=== PATIENT | male | born 1950 | race African-American/Black ===

== ENCOUNTER → 2016-10-29 | Outpatient (CLI) | payer MEDICARE, OTHER ==
[~2016-10-29] MED LIST: AMLO2.5T PO; IOHEXOL 300 MG/ML 100ML VIAL. IV ONE; LOSA25TA4 PO; METF500T4 PO; TAMS0.4C97 PO
--- NOTE | 2016-10-29 11:19 | KCIC ---
Examination: CT chest with IV contrast HISTORY History of enlarged paraesophageal lymph node followup COMPARISON 02/12/2016. TECHNIQUE Axial CT images of the chest were performed with IV contrast. Coronal sagittal reformats were performed. Findings : Enlarged appearing thyroid gland grossly similar to prior exam with nodules identified in the left lobe of the thyroid gland and the isthmus with the largest measuring 1.3 centimeters. The caliber of the aorta grossly appears unremarkable. The central airways are patent. The heart size is normal. No evidence of pericardial effusion identified. Small left paraesophageal lymph nodes with the largest measuring 1.5 centimeters are again identified. There is a 1.1 centimeter lymph node identified in the mediastinum in the AP window region. The lungs are clear. No evidence of pleural effusion or pneumothorax. There is diffuse decrease attenuation noted throughout the liver likely hepatic steatosis. There is a small hypodensity identified in the right lobe of the liver measuring 4 millimeters is too small to characterize. The visualized spleen, adrenals grossly appears unremarkable. The stomach is mildly distended. Small hiatal hernia identified. The visualized pancreas grossly appears unremarkable.Mild degenerative changes thoracic spine. IMPRESSION - Unchanged small left paraesophageal lymph nodes grossly similar to prior exam. - Hepatic steatosis. - Multinodular goiter with the largest lymph node measuring 1.3 centimeters in this thymus. Followup ultrasound thyroid can be considered. Electronically signed by: Demetrio Berman (Oct 29, 2016 11:09:03)
== END | disposition home or self-care (01) ==
LOC: KCIC CT 09:33
PROVIDERS: ATTEND Family Medicine
DX: K76.0 Fatty (change of) liver, not elsewhere classified (principal); E04.2 Nontoxic multinodular goiter; R59.9 Enlarged lymph nodes, unspecified
CPT/HCPCS: 71260; 82565; Q9967

== ENCOUNTER → 2017-02-14 | Outpatient (CLI) | payer MEDICARE ==
[~2017-02-14] MED LIST changes: -IOHEXOL 300 MG/ML 100ML VIAL. IV ONE
--- NOTE | 2017-02-14 13:18 | KCIC ---
BILATERAL DUPLEX CAROTID SONOGRAPHY History: Hemispheric carotid artery syndrome. Weakness and numbness, dizziness, speech difficulty. Technique: Duplex sonography of the cervical portion of both carotid arteries was performed. Real-time grayscale, color flow Doppler, and Doppler spectral waveform analysis is performed. Findings: Right side: Peak systolic flow velocity of the CCA is 101 cm/sec. Peak systolic flow velocity of the ICA is 66 cm/sec. The ICA/CCA ratio is 0.6. Peak end diastolic flow velocity of the ICA is 17 cm/sec. The peak systolic velocity of the ECA is 65 cm/sec. No significant plaque formation is identified. Left side: Peak systolic flow velocity of the CCA is 87 cm/sec. Peak systolic flow velocity of the ICA is 81 cm/sec. The ICA/CCA ratio is 0.9. Peak end diastolic flow velocity of the ICA is 26 cm/sec. Peak systolic flow velocity of the ECA is 61 cm/sec. No significant plaque formation is identified. Vertebral arteries: Bilateral vertebral arteries demonstrate antegrade flow. IMPRESSION: No hemodynamically significant internal carotid artery stenosis is identified. PQRS Compliance Statement - Stenosis calculations for CT, MR and conventional angiography are based upon measurement of the distal ICA diameter in accordance with the NASCET methodology. Stenosis calculations for carotid ultrasound studies are derived from validated velocity criteria which are known to correlate with the NASCET methodology. Electronically signed by: Kade Chatman MD (02/14/2017 12:59 PM)
== END | disposition home or self-care (01) ==
LOC: KCIC US 11:01
PROVIDERS: ATTEND Family Medicine
DX: G45.1 Carotid artery syndrome (hemispheric) (principal)
CPT/HCPCS: 93880

== ENCOUNTER → 2017-12-30 | Outpatient (CLI) | payer MEDICARE ==
[2017-12-30] MEDS: IOHEXOL 300 MG/ML 100ML VIAL. IV (12:32)
== END | disposition home or self-care (01) ==
LOC: KCIC CT 11:35
DX: K76.0 Fatty (change of) liver, not elsewhere classified (principal)
CPT/HCPCS: 71260; Q9967

== ENCOUNTER → 2018-01-25 | Outpatient (CLI) | payer MEDICARE | END | disposition home or self-care (01) | LOC: KCIC US 13:53 | DX: B02.29 Other postherpetic nervous system involvement (principal); M79.89 Other specified soft tissue disorders | CPT/HCPCS: 76881 ==

== ENCOUNTER 2019-03-19 04:19 | Observation (INO) | payer MEDICARE ==
[~2019-03-19] VITALS: Ht 182.9 cm; Wt 102.5 kg
[~2019-03-19 04:19] MED LIST changes: -AMLO2.5T PO; +AMLO2.5T5 PO; -LOSA25TA4 PO; +LOSA25TA54 PO; +METF500T16 PO; -METF500T4 PO
[2019-03-19] MEDS ORDERED: IV NORMAL SALINE 1000ML BAG 1,000 ML IV ONE (04:30)
[2019-03-19 04:40] LABS: BASO # 0.1 x10^3/uL (0.0-0.2); BASO % 1 % (0-3); EOS # 0.2 x10^3/uL (0.0-0.7); EOS % 2 % (0-3); HEMATOCRIT 46.4 % (39.0-53.0); HEMOGLOBIN 15.9 g/dL (13.0-17.5); LYMPH # 2.5 x10^3/uL (1.0-4.8); LYMPH % 32 % (24-48); MEAN CORPUSCULAR HEMOGLOBIN 35 pg (25-35); MEAN CORPUSCULAR HGB CONC 34 g/dL (31-37); MEAN CORPUSCULAR VOLUME 100 fL (79-100); MONO # 0.8 x10^3/uL (0.0-1.1); MONO % 10 % (0-9); NEUT # 4.4 x10^3/uL (1.8-7.7); NEUT % 56 % (31-73); PLATELET COUNT 150 x10^3/uL (140-400); RED BLOOD COUNT 4.62 x10^6/uL (4.30-5.70); RED CELL DISTRIBUTION WIDTH 13.4 % (11.5-14.5); WHITE BLOOD COUNT 7.8 x10^3/uL (4.0-11.0)
[2019-03-19] MEDS ORDERED: LABETALOL 20 MG/4 ML DISP.SYRIN. IVP ONE (04:45)
[2019-03-19] MEDS ORDERED: ASPIRIN 325 MG TABLET PO ONE (04:45)
[2019-03-19 04:51] LABS: CALCIUM 9.7 mg/dL (8.5-10.1); CREATININE 1.5 mg/dL (0.7-1.3)
[2019-03-19 04:52] LABS: PROTHROMBIN TIME PATIENT 14.3 SEC (11.7-14.0)
[2019-03-19 04:58] LABS: MAGNESIUM 1.8 mg/dL (1.8-2.4); TOTAL BILIRUBIN 0.5 mg/dL (0.2-1.0)
--- NOTE | 2019-03-19 05:26 | PHYS DOC ---
Past Medical History Past Medical History: Diabetes-Type II, High Cholesterol, Hypertension Additional Past Surgical Histo: right ulnar nerve surg, ligament repair left ankle, back surgery Smoking: Quit Greater Than 1 Year Alcohol Use: Occasionally Drug Use: None Adult General Chief Complaint Chief Complaint: CHEST PAIN HPI HPI Patient is a 69 year old [f__sex] who presents with [] Review of Systems Review of Systems Constitutional: Denies fever or chills [] Eyes: Denies change in visual acuity, redness, or eye pain [] HENT: Denies nasal congestion or sore throat [] Respiratory: Denies cough or shortness of breath [] Cardiovascular: No additional information not addressed in HPI [] GI: Denies abdominal pain, nausea, vomiting, bloody stools or diarrhea [] : Denies dysuria or hematuria [] Musculoskeletal: Denies back pain or joint pain [] Integument: Denies rash or skin lesions [] Neurologic: Denies headache, focal weakness or sensory changes [] Endocrine: Denies polyuria or polydipsia [] All other systems were reviewed and found to be within normal limits, except as documented in this note. Current Medications Current Medications Current Medications Medications (Trade) Dose Ordered Sig/Kristina Start Time Stop Time Status Last Admin Dose Admin Aspirin (Debra Aspirin) 325 mg 1X ONCE 03/19/19 04:45 03/19/19 04:46 DC 03/19/19 04:42 325 MG Labetalol HCl (Normodyne Iv Push) 20 mg 1X ONCE 03/19/19 04:45 03/19/19 04:46 DC 03/19/19 04:43 20 MG Lorazepam (Ativan Inj) 0.5 mg 1X ONCE 03/19/19 05:30 03/19/19 05:31 UNV Sodium Chloride 1,000 ml @ 1,000 mls/hr 1X ONCE 03/19/19 04:30 03/19/19 05:29 03/19/19 04:43 1,000 MLS/HR Allergies Allergies Allergies Coded Allergies Type Severity Reaction Last Updated Verified No Known Drug Allergies 10/29/16 No Physical Exam Physical Exam Constitutional: Well developed, well nourished, no acute distress, non-toxic appearance. [] HENT: Normocephalic, atraumatic, bilateral external ears normal, oropharynx moist, no oral exudates, nose normal. [] Eyes: PERRLA, EOMI, conjunctiva normal, no discharge. [] Neck: Normal range of motion, no tenderness, supple, no stridor. [] Cardiovascular:Heart rate regular rhythm, no murmur [] Lungs & Thorax: Bilateral breath sounds clear to auscultation [] Abdomen: Bowel sounds normal, soft, no tenderness, no masses, no pulsatile masses. [] Skin: Warm, dry, no erythema, no rash. [] Back: No tenderness, no CVA tenderness. [] Extremities: No tenderness, no cyanosis, no clubbing, ROM intact, no edema. [] Neurologic: Alert and oriented X 3, normal motor function, normal sensory function, no focal deficits noted. [] Psychologic: Affect normal, judgement normal, mood normal. [] Current Patient Data Vital Signs Vital Signs Date Time Temp Pulse Resp B/P (MAP) Pulse Ox O2 Delivery O2 Flow Rate FiO2 03/19/19 04:43 69 200/115 03/19/19 04:24 97.8 20 100 Room Air 97.8 Lab Values Laboratory Tests Test 03/19/19 04:28 White Blood Count 7.8 x10^3/uL (4.0-11.0) Red Blood Count 4.62 x10^6/uL (4.30-5.70) Hemoglobin 15.9 g/dL (13.0-17.5) Hematocrit 46.4 % (39.0-53.0) Mean Corpuscular Volume 100 fL (79-100) Mean Corpuscular Hemoglobin 35 pg (25-35) Mean Corpuscular Hemoglobin Concent 34 g/dL (31-37) Red Cell Distribution Width 13.4 % (11.5-14.5) Platelet Count 150 x10^3/uL (140-400) Neutrophils (%) (Auto) 56 % (31-73) Lymphocytes (%) (Auto) 32 % (24-48) Monocytes (%) (Auto) 10 % (0-9) H Eosinophils (%) (Auto) 2 % (0-3) Basophils (%) (Auto) 1 % (0-3) Neutrophils # (Auto) 4.4 x10^3/uL (1.8-7.7) Lymphocytes # (Auto) 2.5 x10^3/uL (1.0-4.8) Monocytes # (Auto) 0.8 x10^3/uL (0.0-1.1) Eosinophils # (Auto) 0.2 x10^3/uL (0.0-0.7) Basophils # (Auto) 0.1 x10^3/uL (0.0-0.2) Prothrombin Time 14.3 SEC (11.7-14.0) H Prothrombin Time INR 1.1 (0.8-1.1) PTT 30 SEC (24-38) D-Dimer (Dottie) 0.46 ug/mlFEU (0.00-0.50) Sodium Level 136 mmol/L (136-145) Potassium Level 4.0 mmol/L (3.5-5.1) Chloride Level 100 mmol/L (98-107) Carbon Dioxide Level 24 mmol/L (21-32) Anion Gap 12 (6-14) Blood Urea Nitrogen 21 mg/dL (8-26) Creatinine 1.5 mg/dL (0.7-1.3) H Estimated GFR (Cockcroft-Gault) 56.0 BUN/Creatinine Ratio 14 (6-20) Glucose Level 276 mg/dL (70-99) H Calcium Level 9.7 mg/dL (8.5-10.1) Magnesium Level 1.8 mg/dL (1.8-2.4) Total Bilirubin 0.5 mg/dL (0.2-1.0) Aspartate Amino Transferase (AST) 19 U/L (15-37) Alanine Aminotransferase (ALT) 38 U/L (16-63) Alkaline Phosphatase 95 U/L (46-116) Creatine Kinase 275 U/L (39-308) Creatine Kinase MB (Mass) 2.2 ng/mL (0.0-3.6) Creatine Kinase MB Relative Index 0.8 % (0-4) Troponin I Quantitative < 0.017 ng/mL (0.000-0.055) EC-Qei-W-Type Natriuretic Peptide 42 pg/mL (0-124) Total Protein 8.0 g/dL (6.4-8.2) Albumin 4.0 g/dL (3.4-5.0) Albumin/Globulin Ratio 1.0 (1.0-1.7) Lipase 188 U/L (73-393) Laboratory Tests 03/19/19 04:28 Laboratory Tests 03/19/19 04:28 EKG EKG @0425 NSR at 66bpm, NO ST elevation, nonspecific t wave inversion III Radiology/Procedures Radiology/Procedures [] Course & Med Decision Making Course & Med Decision Making Pertinent Labs and Imaging studies reviewed. (See chart for details) [] Dragon Disclaimer Dragon Disclaimer This electronic medical record was generated, in whole or in part, using a voice recognition dictation system. Departure Departure Impression: Primary Impression: Chest pain Additional Impression: Hypertensive urgency Disposition: ADMITTED INPATIENT (obs CVC) Admitting Physician: MARISOL Dahl) Condition: STABLE Referrals: RONAN FENTON PA-C (PCP) The HEART Score for CP Pts HEART Score for Chest Pain: HEART Score for Chest Pain Response (Comments) Value History Moderately Suspicious 1 ECG Normal 0 Age > 65 2 Risk Factors >3 Risk Factors or Hx CAD 2 Troponin < Normal Limit 0 Total 5 Risk Factors: Risk Factors: DM, Current or recent (<one month) smoker, HTN, HLP, family h istory of CAD, obesity. Risk Scores: Score 0 - 3: 2.5% MACE over next 6 weeks - Discharge Home Score 4 - 6: 20.3% MACE over next 6 weeks - Admit for Clinical Observation Score 7 - 10: 72.7% MACE over next 6 weeks - Early Invasive Strategies Problem Qualifiers Primary Impression: Chest pain Chest pain type: unspecified Qualified Codes: R07.9 - Chest pain, unspecified KATI MANNING DO Mar 19, 2019 05:26
[2019-03-19] MEDS ORDERED: fentaNYL PF VIAL 100 MCG/2 ML VIAL IV PRN (05:30)
[2019-03-19] MEDS ORDERED: ONDANSETRON PF 4 MG/2 ML VIAL. IV PRN (05:30)
[2019-03-19] MEDS ORDERED: DEXTROSE 50% 25 GM / 50ML DISP.SYRIN. IV PRN (05:30)
[2019-03-19 07:00] VITALS: BP 155/87
[2019-03-19 07:15] VITALS: BP 139/78
[2019-03-19 07:45] VITALS: BP 149/65
--- NOTE | 2019-03-19 07:51 | EKG ---
[facility] [address] [place] [address] Test Date: 2019-03-19 Test Time: 04:25:22 Pat Name: CHARLEY WOO Department: Room: [facility] 1 Gender: M Foreign Language Professor: : 1950 Requested By: KATI MANNING Order Number: [id number] Reading MD: Andrea Sarkar MD Measurements Intervals [place] Rate: 65 P: 31 ID: [id number] QRS: -14 QRSD: 82 T: -5 QT: 376 QTc: 395 Interpretive Statements SINUS RHYTHM PRIOR INFEROSEPTAL INFARCT Electronically Signed On 03-19-2019 11:45:35 CDT by Andrea Sarkar MD
--- NOTE | 2019-03-19 07:52 | RAD ---
Exam performed: 2 views of the chest. Indication: Chest pain Date of Service: 03/19/2019 5:17 AM . Comparison : None available Findings: PA and lateral radiographs of the chest reveal a normal cardiomediastinal contour. The lungs are clear. No pleural fluid is seen. The visualized osseous structures are unremarkable. Impression: No acute cardiopulmonary process seen. Electronically signed by: Richelle Granado MD (03/19/2019 7:50 AM) [facility]
[2019-03-19 08:00] VITALS: BP 163/68
[2019-03-19] MEDS: INSULIN LISPRO 300 UNITS/3 ML INSULN.PEN. SQ SCH ×2 (08:00→12:23)
[2019-03-19 09:30] VITALS: BP 128/70
[2019-03-19] MEDS ORDERED: FINA5TAB4 PO (10:18)
[2019-03-19] MEDS ORDERED: GLIM2TAB2 PO (10:18)
[2019-03-19] MEDS ORDERED: METF10007 PO (10:22)
[2019-03-19] MEDS ORDERED: OMEP40CA5 PO (10:22)
[2019-03-19] MEDS ORDERED: CRESTOR20 MG PO (10:22)
[2019-03-19] MEDS ORDERED: TAMS0.4C97 PO (10:22)
[2019-03-19] MEDS ORDERED: LOSA-73 PO (10:22)
--- NOTE | 2019-03-19 12:11 | HP ---
ADMIT DATE: CHIEF COMPLAINT: Chest pain. 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 He presented with chest pain. He does have diabetes, hypertension, and hyperlipidemia. His daughter thinks he may have had some cardiac problems in the past, although the patient does not really admit to that at this time. The family also states that he is quite noncompliant with taking his medications. When he got to the ER, his pressures were in the 200s and his glucose is high at 276 and his creatinine is high at 1.5. He rates his pain at 7/10. He has associated chest discomfort and pressure. I discussed the case with ER physician. We will admit the patient to the ICU. We are going to be consulting Cardiology. PAST MEDICAL HISTORY: Noncompliance according to the family, diabetes, hypertension, hyperlipidemia, right ulnar surgery, ligament repair of the ankle, back surgery, tobacco abuse, but he quit a year ago. ALLERGIES: None. FAMILY HISTORY: Coronary artery disease. SOCIAL HISTORY: He works as a information security here at our facility. He does not smoke or take drugs or drink. He used to smoke, but quit years ago. He is , has several children, 1 child is here. Both the family members seemed to be very good support for him. MEDICATIONS: Reviewed, please refer to the MRAD. REVIEW OF SYSTEMS: GENERAL: No history of weight change, weakness or fevers. SKIN: No bruising, hair changes or rashes. EYES: No blurred, double or loss of vision. NOSE AND THROAT: No history of nosebleeds, hoarseness or sore throat. HEART: No history of palpitations, chest pain or shortness of breath on exertion. LUNGS: Denies cough, hemoptysis, wheezing or shortness of breath. GASTROINTESTINAL: Denies changes in appetite, nausea, vomiting, diarrhea or constipation. GENITOURINARY: No history of frequency, urgency, hesitancy or nocturia. NEUROLOGIC: Denies history of numbness, tingling, tremor or weakness. PSYCHIATRIC: No history of panic, anxiety or depression. ENDOCRINE: No history of heat or cold intolerance, polyuria or polydipsia. EXTREMITIES: Denies muscle weakness, joint pain, pain on walking or stiffness. PHYSICAL EXAMINATION: VITALS: Within normal limits and are stable. GENERAL: No apparent distress. Alert and oriented. HEENT: Head is normocephalic, atraumatic, pupils were equally round and reactive to light and accommodation. NECK: Supple, no JVD, no thyromegaly was noted. LUNGS: Clear to auscultation in all lung lennon without rhonchi or wheezing. HEART: RRR, S1, S2 present. Peripheral pulses intact, no obvious murmurs were noted. ABDOMEN: Soft, nontender. Positive bowel sounds no organomegaly, normal bowel sounds. EXTREMITIES: Without any cyanosis, clubbing, or edema. Pedal pulses intact, Homans sign is negative. NEUROLOGIC: Normal speech, normal tone. A and O x3, moves all extremities, no obvious focal deficits. PSYCHIATRIC: Normal affect, normal mood. Stable. SKIN: No ulcerations or rashes, good skin turgor, no jaundice. VASCULAR: Good capillary refill, neurovascular bundle appears to be intact. LABORATORY DATA: Troponin is 0, glucose 276, creatinine 1.5. ASSESSMENT AND PLAN: Hypertensive emergency with chest pain and acute on chronic kidney injury, hyperglycemia and noncompliance. The patient has been admitted. We will get him started back on his home meds, p.r.n. antihypertensives, ICU monitoring. We have consulted Cardiology. They are getting ready to see the patient as I speak. PT, OT, DVT prophylaxis. Full code. Long-term prognosis is guarded if he does not start taking his meds. I have discussed this with him and his family CINDY LOZA DO DR: NANCY/rosalina JOB#: [id number] / [id number]
--- NOTE | 2019-03-19 12:14 | CARD ---
MR#: [id number] Date of Study: 03/19/2019 Ordering Physician: DONAVAN URIARTE, Referring Physician: CINDY LOZA Tech: Kerri Garcia RDCS APPROVED REPORT EXAM: Two-dimensional and M-mode echocardiogram with Doppler and color Doppler. Other Information Quality : Good INDICATION Chest Pain 2D DIMENSIONS RVDd3.1 (2.9-3.5cm)Left Atrium(2D)3.7 (1.6-4.0cm) IVSd1.1 (0.7-1.1cm)Aortic Root(2D)3.4 (2.0-3.7cm) LVDd5.0 (3.9-5.9cm)LVOT Diameter2.1 (1.8-2.4cm) PWd1.1 (0.7-1.1cm)LVDs2.8 (2.5-4.0cm) FS (%) 30.0 %SV88.7 ml LVEF(%)60.0 (>50%) Aortic Valve AoV Peak Adam.137.3cm/sAoV VTI23.7cm AO Peak GR.7.5mmHgLVOT VTI 19.58cm AO Mean GR.4mmHgAVA (VTI)2.90cm2 Mitral Valve MV E Yhylvsdn12.2cm/sMV DECEL [id number] MV A Wkgnvqst65.0cm/sE/A Ratio0.9 TDI Lateral E' P. V9.14cm/sMedial E' P. V6.11cm/s E/Lateral E'8.6E/Medial E'12.8 Tricuspid Valve TR P. Rytihgvc858ji/sRAP RJROEXKP8cwOy TR Peak Gr.83jmVrDAVZ61cxMz Pulmonary Vein S1 Zutjeuny00.6cm/sS2 Whfthzzd62.82cm/s D2 Mhvvcgxa69.8cm/s LEFT VENTRICLE The left ventricle is normal size. There is normal left ventricular wall thickness. The left ventricu lar systolic function is normal and the ejection fraction is within normal range. The Ejection Fracti on is 55-60%. There is normal LV segmental wall motion. Transmitral Doppler flow pattern is Grade I-a bnormal relaxation pattern. RIGHT VENTRICLE The right ventricle is normal size. The right ventricular systolic function is normal. ATRIA The left atrium size is normal. The right atrium size is normal. The interatrial septum is intact wit h no evidence for an atrial septal defect or patent foramen ovale as noted on 2-D or Doppler imaging. AORTIC VALVE The aortic valve is calcified but opens well. Doppler and Color Flow revealed no significant aortic r egurgitation. There is no significant aortic valvular stenosis. MITRAL VALVE The mitral valve is calcified but opens well. There is no evidence of mitral valve prolapse. There is no mitral valve stenosis. Doppler and Color-flow revealed trace to mild mitral regurgitation. TRICUSPID VALVE The tricuspid valve is normal in structure and function. Doppler and Color Flow revealed trace to mil d tricuspid regurgitation. The PA pressure was estimated at 27 mmHg. There is no tricuspid valve sten osis. PULMONIC VALVE The pulmonary valve is normal in structure and function. Doppler and Color Flow revealed no pulmonic valvular regurgitation. There is no pulmonic valvular stenosis. GREAT VESSELS The aortic root is normal in size. The ascending aorta is normal in size. The IVC is normal in size a nd collapses >50% with inspiration. PERICARDIAL EFFUSION There is no evidence of significant pericardial effusion. Critical Notification Critical Value: No <Conclusion> The left ventricle is normal size. The left ventricular systolic function is normal and the ejection fraction is within normal range. The Ejection Fraction is 55-60%. There is no significant aortic valvular stenosis. Doppler and Color Flow revealed no significant aortic regurgitation. Doppler and Color-flow revealed trace to mild mitral regurgitation. Doppler and Color Flow revealed trace to mild tricuspid regurgitation. The PA pressure was estimated at 27 mmHg. Signed by : Anupam Odell MD Electronically Approved : 03/19/2019 12:14:28
[2019-03-19 12:21] VITALS: BP 142/69
[2019-03-19] MEDS ORDERED: amLODIPine BESYLATE 5 MG TABLET PO SCH (13:00)
[2019-03-19] MEDS ORDERED: PANTOPRAZOLE 40 MG TABLET.DR. PO SCH (13:00)
[2019-03-19] MEDS ORDERED: LOSARTAN POTASSIUM 50 MG TABLET. PO SCH (13:00)
[2019-03-19] MEDS ORDERED: GLIMEPIRIDE 2 MG TABLET. PO SCH (13:00)
[2019-03-19] MEDS ORDERED: FINASTERIDE 5 MG TABLET. PO SCH (13:00)
[2019-03-19] MEDS ORDERED: TAMSULOSIN 0.4 MG CAP.ER.24H. PO SCH (13:00)
--- NOTE | 2019-03-19 13:04 | CONS ---
DATE OF CONSULTATION: 03/19/2019 REASON FOR CONSULTATION: Chest pain. HISTORY OF PRESENT ILLNESS: The patient is a pleasant 69-year-old man coming to the hospital today with chest pain. 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 began to have excruciating chest pain. Upon arrival, his blood pressure was above 200. He, unfortunately, does not take his blood pressure medicines regularly. Of note, the patient had extensive cardiac workup through [facility] and given his multiple risk factors for hypertension and erectile dysfunction as well as diabetes and hepatic steatosis, he was referred for coronary angiography in 09/2017, and this revealed normal coronary angiogram. His initial workup thus far has been unrevealing. In speaking with the patient today, he currently denies any chest pain after stabilization of his blood pressures. No syncope, palpitations, orthopnea, or PND. He occasionally has some chest discomfort while walking around as a manager security, likely related to elevated blood pressure. He does not take routine care of himself with respect to monitoring his blood pressure, nor being compliant with his hypertensive therapy. PAST MEDICAL HISTORY: 1. Hypertension. 2. Diabetes. 3. Dyslipidemia. 4. Hepatic steatosis. 5. Erectile dysfunction. FAMILY HISTORY: Noncontributory. SOCIAL HISTORY: He does not smoke. He quit in 08/2017. 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 He has one daughter who is in the hospital today at this time. REVIEW OF SYSTEMS: Negative for 10 of 14 systems reviewed, unless otherwise mentioned above in HPI. PHYSICAL EXAMINATION: VITAL SIGNS: Afebrile, 64, 19, 128/70, 100% on room air. GENERAL: He is alert and oriented, in no acute distress. HEAD AND NECK: Unremarkable. CARDIAC: Regular rate and rhythm without murmurs, rubs or gallops. LUNGS: Clear to auscultation bilaterally. ABDOMEN: Soft, nontender, nondistended. EXTREMITIES: No clubbing, cyanosis or edema. NEUROLOGIC: No focal deficits. MUSCULOSKELETAL: No trauma. DIAGNOSTIC STUDIES: Cardiac enzymes are unremarkable. Hemoglobin, platelets are within normal limits. Creatinine is mildly elevated at 1.5. LFTs are within normal limits. Chest x-ray is unremarkable. Echocardiogram at bedside demonstrates normal LV systolic function. IMPRESSION: 1. Chest pain secondary to hypertensive urgency. 2. Chronic kidney disease, creatinine of 1.5. 3. Hypertension. 4. Diabetes. 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 Once his blood pressure meds have been started, he feels much better and his blood pressure is better controlled. His echocardiogram also demonstrates normal LV function. Please call us with any further questions. Thank you for this consultation. DOMINIK QIU MD DR: DAAN/rosalina JOB#: [id number] / [id number]
[2019-03-19] MEDS ORDERED: metFORMIN 500 MG TABLET PO SCH (17:00)
[2019-03-19] MEDS ORDERED: ATORVASTATIN CALCIUM 40 MG TABLET. PO SCH (21:00)
[2019-03-19] MEDS ORDERED: NON FORMULARY ITEM (Metformin Hcl 1 TAB) PO SCH (21:00)
== END 2019-03-19 17:24 | disposition home or self-care (01) ==
LOC: ER 04:19 → 1 WEST ICU 05:25
PROVIDERS: ADMIT Internal Medicine; ATTEND Internal Medicine
DX: R07.89 Other chest pain (principal); E78.5 Hyperlipidemia, unspecified; E78.00 Pure hypercholesterolemia, unspecified; Z91.19 Patient's noncompliance with other medical treatment and regimen; I16.1 Hypertensive emergency; E11.65 Type 2 diabetes mellitus with hyperglycemia; E11.22 Type 2 diabetes mellitus with diabetic chronic kidney disease; I12.9 Hypertensive chronic kidney disease with stage 1 through stage 4 chronic kidney disease, or unspecified chronic kidney disease; N17.9 Acute kidney failure, unspecified; N18.9 Chronic kidney disease, unspecified; Z82.49 Family history of ischemic heart disease and other diseases of the circulatory system; Z87.891 Personal history of nicotine dependence
CPT/HCPCS: 36415; 71046; 80053; 82553; 82962; 83690; 83735; 83880; 84484; 85025; 85379; 85610; 85730; 93005; 93306; 96361; 96372; 96374; 96375; 99284; G0378; J1815; J2060; J3490; J7030; G0379

== ENCOUNTER → 2019-04-03 | Outpatient (CLI) | payer MEDICARE ==
[2019-03-19 12:21] VITALS: BP 142/69
[~2019-04-03] MED LIST changes: +CRESTOR20 MG PO; +FINA5TAB4 PO; +GLIM2TAB2 PO; +LOSA-73 PO; +METF10007 PO; +OMEP40CA5 PO
--- NOTE | 2019-04-03 17:22 | KCIC ---
Clinical Indications: Hypertension, TIA. Exam : Carotid Duplex with Grayscale Ultrasound and Spectral and Color Doppler Analysis: PQRS Compliance Statement - Stenosis calculations for CT, MR and conventional angiography are based upon measurement of the distal ICA diameter in accordance with the NASCET methodology. Stenosis calculations for carotid ultrasound studies are derived from validated velocity criteria which are known to correlate with the NASCET methodology. Comparison study: None available. Findings: The common, internal and external carotid arteries were examined by grayscale, color and spectral Doppler ultrasound. Moderate atherosclerotic calcifications identified in the bilateral carotid bulbs and the proximal internal carotid arteries. Flow in both vertebral arteries was antegrade and normal. The following are the velocities and ratios in the carotid arteries on both sides: RIGHT ICA PV: 84cm/sec RIGHT CCA PV: 126cm/sec RIGHT ICA ED: 22cm/sec RIGHT IC/CCPV: 0.6 RIGHT VERTEBRAL: antegrade flow RIGHT % STENOSIS: 50-69% LEFT ICA PV: 74cm/sec LEFT CCA PV: 151cm/sec LEFT ICA ED: 43cm/sec LEFT IC/CCPV: 0.5 LEFT VERTEBRAL: antegrade flow LEFT % STENOSIS: 50-69% <50% ICA Stenosis: PSV < 125cm/s (EDV < 40cm/s; SVR < 2.0) 50-69% ICA Stenosis: PSV < 125-229cm/s (EDV 40-99cm/s; SVR 2.0-3.9) >70% ICA Stenosis: PSV > 230cm/s (EDV >100cm/s; SVR >4.0) Multiple nodules identified in the thyroid gland with the largest measuring 1.6 cm in the left lobe of thyroid gland. Impression: 1. 50-69% stenosis identified in the bilateral proximal internal carotid arteries. 2. Multiple thyroid nodules identified with the largest measuring 1.6 cm in the left lobe of the thyroid gland. Recommend ultrasound thyroid follow-up. Electronically signed by: Demetrio Berman MD (04/03/2019 5:19 PM) [id number]
== END | disposition home or self-care (01) ==
LOC: KCIC US 14:53
PROVIDERS: ATTEND Internal Medicine
DX: I65.23 Occlusion and stenosis of bilateral carotid arteries (principal); E04.2 Nontoxic multinodular goiter; I10 Essential (primary) hypertension; E11.9 Type 2 diabetes mellitus without complications; Z86.73 Personal history of transient ischemic attack (TIA), and cerebral infarction without residual deficits
CPT/HCPCS: 93880